=== PATIENT | male | born 1960 | race Caucasian/White ===

== ENCOUNTER 2020-11-04 15:20 | Emergency (ER) | payer OTHER ==
[~2020-11-04] VITALS: Ht 165.1 cm; Wt 95.3 kg
[2020-11-04 15:23] VITALS: BP 144/96
--- NOTE | 2020-11-04 15:23 | NUR ---
DR HAIRSTON AT BEDSIDE EXAMINING PT
--- NOTE | 2020-11-04 15:23 | NUR ---
59 Y/O MALE C/O TOOTH PAIN & RIGHT FACE SWELLING X TODAY. STATES NAUSEA/VOMITING X20 MINS AGO. PT STATES 10/10 THROBBING PAIN. SAW DENTIST TODAY AND WAS TOLD TO COME TO THE ER. PMH:BRENDAN
[2020-11-04] MEDS ORDERED: CLINDAMYCIN 600 MG in DEXTROSE 5% 50 ML IV ONE (15:35)
[2020-11-04] MEDS ORDERED: ONDANSETRON 4 MG/2 ML VIAL IVP ONE (15:35)
[2020-11-04] MEDS ORDERED: MORPHINE SULFATE 4 MG/ML SYR IVP ONE (15:35)
[2020-11-04] MEDS ORDERED: CLINDAMYCIN 600 MG/4 ML VIAL ONE (15:48)
[2020-11-04 16:06] LABS: BASOPHILS % (AUTO) 0.4 % (0.0-2.0); EOSINOPHILS % (AUTO) 0.1 % (0.0-4.0); HEMATOCRIT 43.8 % (36-52); HEMOGLOBIN 15.4 g/dL (12.0-18.0); LYMPHOCYTES # (AUTO) 0.9 K/uL (2.0-11.5); LYMPHOCYTES % (AUTO) 7.9 % (20.5-51.1); MEAN CORPUSCULAR HEMOGLOBIN 30 pg (27-31); MEAN CORPUSCULAR HGB CONC 35 g/dL (33-37); MEAN CORPUSCULAR VOLUME 85.8 fL (80-94); MONOCYTES # (AUTO) 0.6 K/uL (0.8-1.0); MONOCYTES % (AUTO) 5.6 % (1.7-9.3); NEUTROPHILS # (AUTO) 9.6 K/uL (1.8-7.7); PLATELET COUNT (AUTO) 282 K/uL (140-450); RED CELL DISTRIBUTION WIDTH 12.7 % (11.6-13.7); WHITE BLOOD COUNT (AUTO) 11.2 K/uL (4.8-10.8)
[2020-11-04 16:21] LABS: ANION GAP 15.3 (8-16); CARBON DIOXIDE 21.5 mmol/L (21-32); CREATININE 0.9 mg/dL (0.6-1.3); POTASSIUM 3.8 mmol/L (3.5-5.1)
--- NOTE | 2020-11-04 16:50 | NUR ---
PT TAKEN TO CT SCAN VIA [facility]
--- NOTE | 2020-11-04 16:56 | NUR ---
PT RETURNED FROM CT
[2020-11-04] MEDS ORDERED: CLIN300C2 PO (17:57)
[2020-11-04 18:07] VITALS: BP 125/73
--- NOTE | 2020-11-04 18:07 | NUR ---
Patient discharged with v/s stable. Written and verbal after care instructions given and explained. Patient alert, oriented and verbalized understanding of instructions. Ambulatory with steady gait. All questions addressed prior to discharge. ID band removed. Patient advised to follow up with PMD. Rx of CLINDAMYCIN given. Patient educated on indication of medication including possible reaction and side effects. Opportunity to ask questions provided and answered.
== END 2020-11-04 18:07 | disposition home or self-care (01) ==
LOC: MED 15:20
DX: L03.211 Cellulitis of face (principal); K04.7 Periapical abscess without sinus; E11.9 Type 2 diabetes mellitus without complications
CPT/HCPCS: 36415; 70487; 80048; 85025; 87040; 96365; 96375; 99285; J2270; J2405; J3490; Q9967

== ENCOUNTER 2020-11-06 10:55 | Emergency (ER) | payer OTHER ==
[~2020-11-06] VITALS: Ht 165.1 cm; Wt 97.2 kg
[~2020-11-06 10:55] MED LIST: CLIN300C2 PO
[2020-11-06 11:17] VITALS: BP 124/84
--- NOTE | 2020-11-06 11:53 | NUR ---
Patient discharged with v/s stable. Written and verbal after care instructions given and explained. Patient verbalized understanding. Ambulatory with steady gait. All questions addressed prior to discharge. Advised to follow up with PMD.
== END 2020-11-06 11:53 | disposition home or self-care (01) ==
LOC: MED 10:55
DX: K04.7 Periapical abscess without sinus (principal); E11.9 Type 2 diabetes mellitus without complications
CPT/HCPCS: 99281